=== PATIENT | male | born 1985 | race Caucasian/White ===

== ENCOUNTER 2019-02-12 08:37 | Emergency (ER) | payer OTHER ==
[2019-02-12] MEDS ORDERED: NS 0.9% 1000 ML** 1,000 ML IV ONE ×2 (08:46→10:14)
[2019-02-12] MEDS ORDERED: Famotidine IV* 10 MG/ML 2 ML (20 mg) IV ONE (08:46)
[2019-02-12] MEDS ORDERED: Ondansetron INJ* 2 MG/ML VIAL IV ONE (08:47)
[2019-02-12 09:04] LABS: ABS Basophils 0.1 10^3/ul (0-0.2); ABS Eosinophils 0 10^3/ul (0-0.6); ABS Lymphocytes 1.1 10^3/ul (1.0-4.8); ABS Monocytes 0.7 10^3/ul (0-0.8); ABS Neutrophils 18.6 10^3/ul (1.5-7.7); ABS Nucleated RBC 0.2 10^3/ul; Eosinophil % 0.1 %; Hematocrit 47 % (36-46); Lymphocyte % 5.6 %; Mean Corpuscular HGB Conc 34 g/dL (31-36); Mean Corpuscular Hemoglobin 31 pg (27-31); Mean Corpuscular Volume 90 fL (80-94); Mean Platelet Volume 7.8 fL (7.4-10.4); Nucleated Red Blood Cells % 0.8; Platelet Count 172 10^3/uL (150-450); Red Blood Count 5.19 10^6 /uL (4.18-5.48); Red Cell Distribution Width 13 % (10.5-15); White Blood Count 20.5 10^3/uL (3.5-10.8)
--- NOTE | 2019-02-12 09:06 | ED ---
Nausea/Vomiting/Diarrhea HPI - HPI Summary HPI Summary: Patient is a 33-year-old male who is otherwise healthy presenting to the ED with nausea, vomiting, diarrhea which is watery and profuse with past 4 days. He states he has been unable to leave his home, has been unable to eat or drink anything due to the nausea and diarrhea. He has had 10+ bouts of diarrhea per day. This is never happened to him before. He denies eating anything abnormal. He denies any fevers, sweats, chills. He has no significant PMH and takes no medications. He denies any antibiotic use, denies any travel, denies any camping trips or drinking contaminated water to his knowledge. He denies any abdominal pain, urinary symptoms, back pain. Diarrhea started 4 days ago as "loose," then became watery over the past 2 days. - History of Current Complaint Chief Complaint: EDNauseaVomitDiarrh Stated Complaint: VOMITING/DEHYDRATION/WEAKNESS PER PT Time Seen by Provider: 02/12/19 08:42 Hx Obtained From: Patient Onset/Duration: Sudden Onset Timing: Constant Severity Initially: Mild Severity Currently: Mild Pain Intensity: 9 Pain Scale Used: 0-10 Numeric Aggravating Factor(s): Nothing Alleviating Factor(s): Nothing Nausea/Vomiting Presence: None Vomiting Frequency: Every 3-4 hours Nausea/Vomiting Duration: 0-12 hours Diarrhea Presence: No Diarrhea Frequency: Every 15-60 minutes Diarrhea Duration: 12-24 hours Diarrhea Characteristics: Watery - Risk Factors Influenza Risk Factors: Negative - Allergies/Home Medications Allergies/Adverse Reactions: Allergies Allergy/AdvReac Type Severity Reaction Status Date / Time amoxicillin Allergy Rash Verified 02/12/19 09:12 PMH/Surg Hx/FS Hx/Imm Hx Previously Healthy: Yes Endocrine/Hematology History: Denies: Hx Diabetes Cardiovascular History: Denies: Hx Hypertension, Hx Pacemaker/ICD History: Denies: Hx Renal Disease Sensory History: Denies: Hx Hearing Aid Psychiatric History: Denies: Hx Panic Disorder - Surgical History Surgery Procedure, Year, and Place: gall bladder removal - Immunization History Hx Pertussis Vaccination: No Immunizations Up to Date: Yes Infectious Disease History: No Infectious Disease History: Denies: Traveled Outside the [place] in Last 30 Days - Social History Occupation: Employed Full-time Lives: With Family Alcohol Use: None Hx Substance Use: No Substance Use Type: Reports: None Hx Tobacco Use: Yes Smoking Status (MU): Former Smoker Review of Systems Constitutional: Negative Negative: Fever, Chills, Fatigue, Skin Diaphoresis Negative: Palpitations, Chest Pain Negative: Shortness Of Breath, Cough Positive: Vomiting, Diarrhea, Nausea Genitourinary: Negative Positive: no symptoms reported, see HPI Negative: Arthralgia, Myalgia All Other Systems Reviewed And Are Negative: Yes Physical Exam Triage Information Reviewed: Yes Vital Signs On Initial Exam: Initial Vitals Temp Pulse Resp BP Pulse Ox 98.8 F 62 18 138/67 98 02/12/19 08:39 02/12/19 08:39 02/12/19 08:39 02/12/19 08:39 02/12/19 08:39 Vital Signs Reviewed: Yes Appearance: Positive: Well-Appearing, Well-Nourished Skin: Positive: Warm, Skin Color Reflects Adequate Perfusion Head/Face: Positive: Normal Head/Face Inspection Eyes: Positive: EOMI, Conjunctiva Clear Respiratory/Lung Sounds: Positive: Clear to Auscultation, Breath Sounds Present Cardiovascular: Positive: RRR, Pulses are Symmetrical in both Upper and Lower Extremities Abdomen Description: Positive: Nontender, No Organomegaly, Soft Bowel Sounds: Positive: Present Neurological: Positive: Sensory/Motor Intact, Alert, Oriented to Person Place, Time Psychiatric: Positive: Normal, Affect/Mood Appropriate AVPU Assessment: Alert Diagnostics - Vital Signs Vital Signs Temp Pulse Resp BP Pulse Ox 02/12/19 08:39 98.8 F 62 18 138/67 98 - Laboratory Result Diagrams: 02/12/19 08:55 02/12/19 08:55 Lab Statement: Any lab studies that have been ordered have been reviewed, and results considered in the medical decision making process. Naus/Vom/Diarrhea Course/Dx - Course Course Of Treatment: During the patient's course treatment, he is evaluated for nausea, vomiting, diarrhea. Diarrhea is profuse and watery. He has never had anything like this before. Patient states he has not been on any antibiotics, denies any travel. During course of treatment, he is given 4 mg IV Zofran, 1 L normal saline, 40 mg IV famotidine. Labs obtained and stool cultures with ova and parasite and C. difficile sent. Influenza positive. He is treated with tamiflu and zofran sent to rx. - Differential Dx/Diagnosis Provider Diagnosis: Influenza A Condition At Discharge: Stable Discharge - Sign-Out/Discharge Documenting (check all that apply): Patient Departure Patient Received Moderate/Deep Sedation with Procedure: No - Discharge Plan Condition: Stable Disposition: HOME Prescriptions: Ondansetron ODT TAB* [Zofran 4 MG Odt TAB*] 4 mg PO Q6H PRN #12 tab.odt MDD 4 PRN Reason: Nausea Oseltamivir CAP* [Tamiflu CAP*] 75 mg PO BID #10 cap Patient Education Materials: Influenza (ED) Forms: *Work Release Referrals: No Primary Care Phys,NOPCP [Primary Care Provider] - Additional Instructions: Drink plenty of fluids Tamiflu twice daily 5 days Rest as much as possible Zofran as needed for nausea and vomiting - Billing Disposition and Condition Condition: STABLE Disposition: Home
[2019-02-12 09:23] LABS: ALT 12 U/L (7-52); AST 20 U/L (13-39); Albumin 4.5 g/dL (3.2-5.2); Albumin/Globulin Ratio 1.3 (1-3); Alkaline Phosphatase 57 U/L (34-104); Anion Gap 13 mmol/L (2-11); Blood Urea Nitrogen 17 mg/dL (6-24); C Reactive Protein 188.62 mg/L (<8.01); CO2 Carbon Dioxide 21 mmol/L (22-32); Calcium 9.3 mg/dL (8.6-10.3); Chloride 97 mmol/L (101-111); Creatine Kinase 263 U/L (10-223); EGFR African American 62.8 (>60); EGFR Non-African American 51.9 (>60); Globulin 3.6 g/dL (2-4); Glucose 132 mg/dL (70-100); Magnesium 1.9 mg/dL (1.9-2.7); Potassium 3.6 mmol/L (3.5-5.0); Sodium 131 mmol/L (135-145); Total Protein 8.1 g/dL (6.4-8.9)
[2019-02-12 10:37] LABS: Influenza A Molecular POSITIVE (Negative)
[2019-02-12 10:45] LABS: Urine Appearance Clear; Urine Bacteria Absent (Absent); Urine Bilirubin Negative (Negative); Urine Blood 1+ (Negative); Urine Color Yellow; Urine Glucose Negative (Negative); Urine Ketones Trace (Negative); Urine Nitrite Negative (Negative); Urine Protein Negative (Negative); Urine Red Blood Cell Trace(0-2/hpf) (Absent); Urine Specific Gravity 1.012 (1.010-1.030); Urine Squamous Epithelial Cell Present (Absent); Urine Urobilinogen Negative (Negative); Urine White Blood Cell Trace(0-5/hpf) (Absent)
[2019-02-12 11:34] VITALS: BP 113/66
== END 2019-02-12 11:33 | disposition home or self-care (01) ==
LOC: ED 08:37
DX: J10.1 Influenza due to other identified influenza virus with other respiratory manifestations (principal); Z88.0 Allergy status to penicillin; Z87.891 Personal history of nicotine dependence
CPT/HCPCS: 36415; 80053; 81003; 81015; 82550; 83605; 83630; 83690; 83735; 85025; 86140; 87045; 87046; 87086; 87177; 87209; 87328; 87329; 87493; 87899; 96361; 96374; 96375; 99283; J2405

== ENCOUNTER 2019-12-17 02:45 | Emergency (ER) | payer OTHER ==
--- OUTSIDE RECORDS SUMMARY | 2019-12-17 02:55 | XMS REPORT | Continuity of Care Document ---
:1985 External Reference #:[id number] Author Name Yasmeen Galvan DO (transmitted by agent of provider Fadumo Velasquez) Address [address] [place] [id number] Care Team Providers Name Role Phone Caryl Lozano M.D. 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 Active Problems Provider Date Asthma without status asthmaticus Garrett Gomes NP Onset: 05/06/2015 Social History Type Date Description Comments Sex Unknown Tobacco Use Start: Unknown End: Former Cigarette Smoker total 12 years one pack per day still smoking e-cigs Smoking Status Reviewed: 11/27/19 Former Cigarette Smoker total 12 years one pack per day still smoking e-cigs ETOH Use Denies alcohol use Recreational Drug Use Denies Drug Use Tobacco Use Start: Unknown End: Patient is a former quit 2013 Unknown smoker Exercise Type/Frequency Exercises regularly Allergies, Adverse Reactions, Alerts Description No Known Drug Allergies Medications Active Medications SIG Qnty Indications Ordering Provider Date Prednisone 1 by mouth every 5tabs J45.901 Yasmeen Galvan, 11/27/2019 50mg Tablets day DO Oseltamivir Phosphate take one twice a 10caps J11.89 Yasmeen Galvan, 11/27 day for 5 days DO 75mg Capsules Escitalopram Oxalate 1 by mouth every 30tabs F41.9 Garrett Gomes NP 2018 20mg day Tablets Hydroxyzine HCL 1-2 tablets by 60tabs F41.9 Garrett Gomes NP 10/02/2019 25mg mouth every 6 Tablets hours as needed for anxiety/insomnia Clonazepam 1/2-1 tab by 14tabs Garrett Gomes NP 09/06/2019 0.5mg Tablets mouth twice a day as needed anxiety. Ventolin HFA 2 puffs by mouth 18gm Caryl Lozano MD 01/17/2019 108(90Base) every four hours mcg/Act Aerosol as needed Multi For Him 1 by mouth every Unknown Capsules day History Medications Azithromycin 2 tabs by mouth 6tabs J45.21 Garrett Gomes NP 10/02/2019 - 250mg every day x1 day, 10/09/2019 Tablets 1 tab by mouth every day x 4 days Escitalopram Oxalate 1/2 tab once 30tabs F41.9 Garrett Gomes NP 09/04/2019 - daily for 1 week 10/02/2019 10mg Tablets then increase to 1 tab daily. Hydroxyzine HCL 1-2 tablets by 30tabs F41.9 Garrett Gomes NP 09/04/2019 - 25mg mouth every 6 09/06/2019 Tablets hours as needed for anxiety/insomnia Immunizations Description No Information Available Vital Signs Date Vital Result Comment 11/27/2019 1:08pm Height 76 inches 6'4" Weight 207.00 lb Heart Rate 56 /min BP Systolic 113 mmHg BP Diastolic 65 mmHg Body Temperature 97.1 F O2 % BldC Oximetry 94 % BMI (Body Mass Index) 25.2 kg/m2 10/02/2019 9:53am Height 76 inches 6'4" Weight 211.00 lb Heart Rate 80 /min BP Systolic 120 mmHg BP Diastolic 70 mmHg Body Temperature 99.1 F O2 % BldC Oximetry 95 % BMI (Body Mass Index) 25.7 kg/m2 Results Description No Information Available Procedures Description No Information Available Medical Devices Description No Information Available Encounters Type Date Location Provider Dx Diagnosis Office Visit 10/02/2019 [facility] Internal Garrett Gomes NP F41.9 Anxiety disorder , 9:40a Medicine - [facility] unspecified J45.21 Mild intermittent asthma with (acute) exacerbation Office Visit 09/04/2019 9:40a [facility] Internal Garrett Gomes F41.9 Anxiety disorder, Medicine - [facility] unspecified Assessments Date Code Description Provider 11/27/2019 J11.89 Influenza due to unidentified influenza virus Yasmeen Galvan DO with other manifestations 11/27/2019 J45.901 Unspecified asthma with (acute) exacerbation Yasmeen Galvan DO 10/02/2019 F41.9 Anxiety disorder, unspecified Garrett Gomes NP 10/02/2019 J45.21 Mild intermittent asthma with (acute) Garrett Gomes NP exacerbation 09/04/2019 F41.9 Anxiety disorder, unspecified Garrett Gomes NP Plan of Treatment Future Appointment(s):12/31/2019 10:40 am - [facility] Yasmeen Galvan, DOJ11.89 Influenza due to unidentified influenza virus with other manifestationsNew Medication: Oseltamivir Phosphate 75 mg - take one twice a day for 5 daysNew Labs:Influenza A & B Request, Ordered: 11/27/19J45.901 Unspecified asthma with (acute) exacerbationNew Medication:Prednisone 50 mg - 1 by mouth every day Functional Status Description No Information Available Mental Status Description No Information Available Referrals Description No Information Available
[2019-12-17] MEDS ORDERED: fentaNYL* 50 MCG/ML 2 ML VIAL (100 MCG VIAL) ONE (04:30)
[2019-12-17] MEDS ORDERED: fentaNYL* 50 MCG/ML 2 ML VIAL (100 MCG VIAL) IV SLOW PU ONE (04:30)
--- NOTE | 2019-12-17 04:50 | ED ---
Lower Extremity - HPI Summary HPI Summary: The patient is a 34 y/o male presenting to [facility] accompanied by father with a chief complaint of left hip pain onset last night. He reports that he got up off of his couch and suddenly had pain in the left hip. He has been unable to stand or ambulate on the leg. He denies any tingling, foot drop, bowel or bladder incontinence, or fevers, but he notes swelling in the left knee. The pain is rated 10/10 in severity and improves with massaging the anterior and posterior hip near the sciatic nerve. He has taken two Ibuprofen at 2230 last night to no relief. He has not experienced this pain before. PMHx: sport injuries, anxiety, cholecystectomy. Former smoker, no EtOH, marijuana use. Medications reviewed. Allergies noted. - History of Current Complaint Chief Complaint: EDHipPelvisInjury Stated Complaint: HIP PAIN PER PT Time Seen by Provider: 12/17/19 04:01 Hx Obtained From: Patient Mechanism Of Injury: Unknown Onset of Pain: Immediate Onset/Duration: Still Present Severity Initially: Moderate Severity Currently: Severe Pain Intensity: 10 Pain Scale Used: 0-10 Numeric Timing: Constant Location: Is Discrete @ - left hip Character Of Pain: Sharp Associated Signs And Symptoms: Positive: Swelling - left knee. Negative: Fever , Other - incontinence of bladder or bowel, foot drop Aggravating Factor(s): Standing, Ambulation Alleviating Factor(s): Rest Able to Bear Weight: No - Allergies/Home Medications Allergies/Adverse Reactions: Allergies Allergy/AdvReac Type Severity Reaction Status Date / Time amoxicillin Allergy Rash Verified 12/17/19 02:49 Home Medications: Home Medications Albuterol Sulfate [Ventolin Hfa] 18 gm INH Q4HR PRN 12/17/19 [History Confirmed 12/17/19] Escitalopram * [Lexapro *] 20 mg PO DAILY 12/17/19 [History Confirmed 12/17/19] PMH/Surg Hx/FS Hx/Imm Hx Endocrine/Hematology History: Denies: Hx Diabetes Cardiovascular History: Denies: Hx Hypertension, Hx Pacemaker/ICD History: Denies: Hx Renal Disease Musculoskeletal History: Reports: Other Musculoskeletal History - sports injuries Sensory History: Reports: Hx Contacts or Glasses Denies: Hx Hearing Aid Opthamlomology History: Reports: Hx Contacts or Glasses Psychiatric History: Reports: Hx Anxiety Denies: Hx Panic Disorder - Surgical History Surgical History: Yes Surgery Procedure, Year, and Place: gall bladder removal Infectious Disease History: No Infectious Disease History: Denies: Traveled Outside the [place] in Last 30 Days - Family History Known Family History: Negative: Hypertension, Diabetes - Social History Alcohol Use: None Hx Substance Use: No Substance Use Type: Reports: Marijuana Hx Tobacco Use: Yes Smoking Status (MU): Former Smoker - Additional Comments History Additional Comments: sports injuries Review of Systems - ROS Summary Review of Systems Summary: Home Medications Medication Instructions Recorded Confirmed Type Albuterol Sulfate [Ventolin Hfa] 18 gm INH Q4HR PRN 12/17/19 12/17/19 History Escitalopram * [Lexapro *] 20 mg PO DAILY 12/17/19 12/17/19 History Negative: Fever Negative: Other - bowel incontinence Negative: incontinence Positive: Myalgia - left hip, Other - swelling in left knee Neurological: Other - Negative: foot drop Negative: Paresthesia All Other Systems Reviewed And Are Negative: Yes Physical Exam - Summary Physical Exam Summary: General: Well-developed, Well-nourished although thin male. Very tall. Appears to be in moderate discomfort. HEENT: Normocephalic, Atraumatic. Eyes: Conjuctiva normal, PERRL. Oropharynx: Clear, mucous membranes moist, (-) exudates. Neck: Soft, FROM, (-) lymphadenopathy, (-) thyromegaly, (-) JVD. Cardiovascular: Normal sinus rhythm, (-) murmur. Lungs: Clear to auscultation bilaterally (-) wheezes, (-) rales, (-) rhonchi. Abdomen: Soft, non-tender, non-distended, (-) organomegaly, normal bowel sounds. Back: (-) CVA tenderness Extremities: No edema. Severe point tenderness in the left sciatic notch, Tenderness of the left hip and left anterior thigh. Skin: Warm, dry, (-) rash. Neuro: Alert and oriented x3, moves all extremities equally. No ataxia. No gait disturbance. No sensory deficit. No amnesia. Normal strength, normal sensation, normal reflexes in the lower extremities bilaterally. Psychiatric: Mood normal, affect normal. Triage Information Reviewed: Yes Vital Signs On Initial Exam: Initial Vitals Temp Pulse Resp BP Pulse Ox 98.4 F 65 16 134/74 98 12/17/19 02:48 12/17/19 02:48 12/17/19 02:48 12/17/19 02:48 12/17/19 02:48 Vital Signs Reviewed: Yes Procedures - Sedation Patient Received Moderate/Deep Sedation with Procedure: No Diagnostics - Vital Signs Vital Signs Temp Pulse Resp BP Pulse Ox 12/17/19 04:00 61 97 12/17/19 03:58 63 126/73 98 12/17/19 02:48 98.4 F 65 16 134/74 98 - Laboratory Lab Statement: Any lab studies that have been ordered have been reviewed, and results considered in the medical decision making process. - Radiology Hip/Pelvis XR Radiology Interpretation Completed By: ED Physician Summary of Radiographic Findings: No obvious fracture or dislocation. Severe arthritic changes. ED physician has reviewed and interpreted this report. Pending official read. Re-Evaluation - Re-Evaluation First Eval Re-Evaluation Time: 05:45 Change: Improved Comment: The patient's pain is somewhat better. He would like to proceed with CT for further diagnostic purposes. Second Eval Re-Evaluation Time: 06:05 Change: Unchanged Comment: Patient went to CT but was unable to have imaging done secondary to pain. We will administer Solu-Medrol and Morphine. Lower Extremity Course/Dx - Course Course Of Treatment: Patient administered Toradol, Fentanyl, and Valium for pain. Patient's pain not relieved so he is also given Solu-Medrol, Morphine, and fluids. - Diagnoses Provider Diagnoses: Left hip pain, Left thigh pain Discharge ED - Sign-Out/Discharge Documenting (check all that apply): Sign-Out Patient Signing out patient TO: Miroslava Albrecht - Patient is a sign-out to Dr. Miroslava Albrecht MD, at change of shift at 0700 on 12/17/19, pending Pelvis CT, Lumbar CT , and disposition. - Discharge Plan Condition: Stable Referrals: Garrett Gomes, RING FACER [Primary Care Provider] - - Attestation Statements Document Initiated by Scribe: Yes Documenting Scribe: Camille Lindquist Provider For Whom Scribe is Documenting (Include Credential): Dr. Mar Sawyer MD Scribe Attestation: Camille Garcia, scribed for Dr. Mar Sawyer MD on 12/17/19 at 0716. Status of Scribe Document: Ready
[2019-12-17] MEDS ORDERED: Diazepam TAB(*) 5 MG PO ONE (04:57)
[2019-12-17] MEDS ORDERED: Ketorolac INJ* 30 MG/ML 1 ML VIAL IM ONE (04:57)
[2019-12-17] MEDS ORDERED: methylPREDNISolone SOD 40 MG* 1 ML VIAL IV ONE (06:39)
[2019-12-17] MEDS ORDERED: NS 0.9% 1000 ML** 1,000 ML IV ONE (06:39)
[2019-12-17] MEDS ORDERED: Morphine 10 MG/ML VIAL (1 ml) IV ONE (06:40)
--- NOTE | 2019-12-17 07:14 | ED ---
Progress - Progress Note Progress Note: This patient is a sign-out to Dr. Miroslava Albrecht from Dr. Mar Sawyer at shift change 0700 on 12/17/[address] Pelvis. Course/Dx - Course Course Of Treatment: Patient administered Toradol, Fentanyl, and Valium for pain. Discharge ED - Discharge Plan Referrals: Garrett Gomes, ELECTRICAL LINE SPLICER [Primary Care Provider] - - Attestation Statements Document Initiated by Scribe: Yes Documenting Scribe: Darryl Daily Provider For Whom Scribe is Documenting (Include Credential): Miroslava Albrecht MD Scribe Attestation: Darryl Garcia, scribed for Miroslava Albrecht MD on 12/17/19 at 0714.
--- NOTE | 2019-12-17 07:16 | UC ---
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 There is no significant osseous central canal stenosis. Dr. Albrecht has reviewed this report. 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 There is moderate to severe osteoarthirtic change in the left hip and moderate osteoarthritic change in the right hip. There is a small joint effusion in the left hip. No acute fracture is seen. Dr. Albrecht has reviewed this report. Re-Evaluation - Re-Evaluation First Eval Comment: revoiewed CT with pt. agreeable to follow-up with ortho - appt with Dr Hollingsworth. [pred daily. norco- precautions given. work note. pt agreeable with plan Course/Dx - Diagnoses Provider Diagnoses: Left hip pain, Left thigh pain Discharge ED - Sign-Out/Discharge Documenting (check all that apply): Patient Departure - Discharge Plan Condition: Stable Disposition: HOME Prescriptions: Hydrocodone/Acetaminophen [Bowlus 5-325 Tablet] 1 - 2 each PO Q6HR PRN #20 tablet MDD 8 PRN Reason: severe pain RX: predniSONE 50 mg TAB [Deltasone 50 mg TAB] 50 mg PO DAILY #4 tab Patient Education Materials: Osteoarthritis (DC), Sciatica (ED), Lumbar Radiculopathy (ED) Forms: *Gen. Provider Communication Referrals: Doug Hollingsworth MD [Medical Doctor] - (You have an appointment on Tuesday morning at 9am 12/19/2019) Garrett Gomes NP [Primary Care Provider] - Additional Instructions: - Take prednisone as prescribed until gone with food - Okay to alternate ibuprofen (Advil, Motrin) 600mg and Tylenol product ( Tylenol or Bowlus) every 3 hours for pain or fever. Take with food. Do NOT take for more than 4-5 days.. Bowlus contains a narcotic - do no drive, operate machinery, drink alcohol or operate machinery while taking this medication - Apply heat to your back - once your muscles are warm - slow, gentle stretching exercises - Contact the sports medicine provider or your primary care provider today to schedule a follow-up appointment this week - Billing Disposition and Condition Condition: STABLE Disposition: Home - Attestation Statements Document Initiated by Salbador: Yes Documenting Scribe: Darryl Daily Provider For Whom Salbador is Documenting (Include Credential): Miroslava Albrecht MD Scribe Attestation: Darryl Garcia, scribed for Miroslava Albrecht MD on 12/17/19 at 0920. Scribe Documentation Reviewed: Yes Provider Attestation: The documentation as recorded by the Darryl iglesias accurately reflects the service I personally performed and the decisions made by me, Miroslava Albrecht MD Status of Scribe Document: Viewed"
[2019-12-17 09:57] VITALS: BP 125/72
== END 2019-12-17 09:55 | disposition home or self-care (01) ==
LOC: ED 02:45
DX: M25.552 Pain in left hip (principal); M79.652 Pain in left thigh; M16.0 Bilateral primary osteoarthritis of hip; M25.452 Effusion, left hip; M51.36 Other intervertebral disc degeneration, lumbar region; F41.9 Anxiety disorder, unspecified; Z88.0 Allergy status to penicillin; Z87.891 Personal history of nicotine dependence
CPT/HCPCS: 72131; 72192; 96361; 96372; 96374; 96375; 99284; A9270-GY; J1885; J2270; J2920; J3010